=== PATIENT | female | born 1945 | race Caucasian/White ===

== ENCOUNTER 2017-07-31 07:46 | Observation (INO) | payer BC ==
[2017-07-31] MEDS: BUPIVACAINE 0.25% (MPF) 30 ML INJ INJ
[2017-07-31] MEDS: POLYMYXIN/BACITRACIN 1L IRRIG IRR
[2017-07-31] MEDS: CEFAZOLIN 2 GM/50 ML (PMX) 50 ML IVPB (07:00)
[2017-07-31] MEDS: SOD CHLORIDE 0.9% 1,000 ML IV (07:00)
[2017-07-31 10:27] LABS: ADD MAN DIFF? NO
[2017-07-31 10:36] LABS: WHITE BLOOD COUNT 9.2 10^3/ul (4.8-10.8)
[2017-07-31 10:36] LABS: BASOPHIL # 0.1 10^3/ul (0.0-0.1); BASOPHILS % 0.8 % (0.0-2.0); EOSINOPHILS # 0.6 10^3/ul (0.0-0.5); EOSINOPHILS % 6.5 % (0.0-7.0); HEMATOCRIT 39.2 % (37.0-47.0); HEMOGLOBIN 12.8 g/dl (12.0-16.0); LYMPHOCYTES # 2.9 10^3/ul (0.8-2.9); MEAN CORPUSCULAR HGB CONC 32.7 g/dl (32.0-37.0); MEAN CORPUSCULAR VOLUME 79.5 fl (82.0-101.0); MEAN PLATELET VOLUME 10.7 fl (7.4-10.4); MONOCYTE # 0.5 10^3/ul (0.3-0.9); MONOCYTES % 5.4 % (0.0-11.0); NEUTROPHIL # 5.1 10^3/ul (1.6-7.5); PLATELET COUNT 329 10^3/UL (140-415); RED BLOOD COUNT 4.93 10^6/ul (4.20-5.40)
[2017-07-31 10:51] LABS: INR 0.86; PROTIME 11.8 Sec (11.9-14.9); PT RATIO 0.9
[2017-07-31 10:52] LABS: ALANINE AMINOTRANSFERASE 25 IU/L (13-69); ALBUMIN 4.1 g/dl (3.3-4.9); ALBUMIN/GLOBULIN RATIO 1.13; ALKALINE PHOSPHATASE 95 IU/L (42-121); ANION GAP 14 (8-16); ASPARTATE AMINO TRANSFERASE 21 IU/L (15-46); BILIRUBIN,INDIRECT 0.4 mg/dl (0-1.1); BILIRUBIN,TOTAL 0.4 mg/dl (0.2-1.3); CARBON DIOXIDE 28 mmol/L (21-31); CHLORIDE 108 mmol/L (97-110); GLUCOSE 115 mg/dl (70-220); PARTIAL THROMBOPLASTIN TIME 28.8 Sec (25.0-35.0); TOTAL PROTEIN 7.7 g/dl (6.1-8.1)
[2017-07-31 10:55] LABS: BLOOD UREA NITROGEN 14 mg/dl (7-20); CALCIUM 9.6 mg/dl (8.4-10.2); CREATININE 0.72 mg/dl (0.44-1.00); POTASSIUM 4.2 mmol/L (3.5-5.1); SODIUM 146 mmol/L (135-144)
[2017-07-31] MEDS ORDERED: POLYMYXIN/BACITRACIN 1L IRRIG (11:41)
[2017-07-31] MEDS ORDERED: BUPIVACAINE 0.25% (MPF) 30 ML INJ (11:41)
[2017-07-31] MEDS ORDERED: MIDAZOLAM 1 MG/ML 2 ML INJ (11:57)
[2017-07-31] MEDS ORDERED: ONDANSETRON 4 MG INJ (12:50)
[2017-07-31] MEDS ORDERED: PROPOFOL 20 ML (12:54)
[2017-07-31] MEDS ORDERED: NEOSTIGMINE 3 MG/3 ML SYRINGE (12:54)
[2017-07-31] MEDS ORDERED: LIDOCAINE 100 MG SYRINGE (12:54)
[2017-07-31] MEDS ORDERED: ROCURONIUM 50 MG INJ (12:54)
[2017-07-31] MEDS ORDERED: GLYCOPYRROLATE 0.4 MG INJ (12:54)
[2017-07-31] MEDS ORDERED: CEFAZOLIN 1 GM INJ (12:54)
[2017-07-31] MEDS: hydrALAzine 20 MG INJ IV (13:13)
[2017-07-31] MEDS: MEPERIDINE 25 MG INJ IV (13:13)
[2017-07-31] MEDS: ONDANSETRON 4 MG INJ IV (13:14)
[2017-07-31] MEDS ORDERED: LABETALOL HCL 20MG INJ IV (13:30)
[2017-07-31] MEDS ORDERED: HYDROmorphONE (0.2 MG/ML) 10ML SYG IV ×2 (13:30)
[2017-07-31] MEDS ORDERED: METOCLOPRAMIDE 10 MG INJ IV (13:30)
[2017-07-31] MEDS ORDERED: FENTAnyl 50 MCG/ML VIAL IV (13:30)
[2017-07-31] MEDS ORDERED: DIPHENHYDRAMINE 50 MG INJ IV (13:30)
[2017-07-31] MEDS ORDERED: KETOROLAC 30 MG INJ IV (13:30)
[2017-07-31] MEDS: HYDROCODONE/APAP (5/325) TAB PO (14:52)
[2017-07-31] MEDS ORDERED: HYDROCODONE/APAP (5/325) TAB PO (17:30)
[2017-07-31] MEDS: morphine 2 MG INJ IV (18:57)
== END 2017-08-01 16:50 | disposition home or self-care (01) ==
LOC: SDS 07:46 → REC 15:04 → MS2 16:35
DX: K43.0 Incisional hernia with obstruction, without gangrene (principal); E11.9 Type 2 diabetes mellitus without complications; I10 Essential (primary) hypertension; E78.5 Hyperlipidemia, unspecified; E66.9 Obesity, unspecified; Z68.36 Body mass index [BMI] 36.0-36.9, adult
CPT/HCPCS: 49655; 80053; 82962; 85025; 85610; 85730

== ENCOUNTER 2018-11-23 11:54 | Emergency (ER) | payer BC ==
[2018-11-23] MEDS: ONDANSETRON 4 MG INJ IV (12:27)
[2018-11-23] MEDS: SOD CHLORIDE 0.9% 1,000 ML IV (12:27)
[2018-11-23 12:30] LABS: ADD MAN DIFF? NO
[2018-11-23 12:36] LABS: WHITE BLOOD COUNT 9.3 10^3/ul (4.8-10.8)
[2018-11-23 12:36] LABS: BASOPHIL # 0.1 10^3/ul (0.0-0.1); BASOPHILS % 0.8 % (0.0-2.0); EOSINOPHILS # 0.7 10^3/ul (0.0-0.5); EOSINOPHILS % 7.1 % (0.0-7.0); HEMATOCRIT 45.9 % (37.0-47.0); HEMOGLOBIN 14.4 g/dl (12.0-16.0); LYMPHOCYTES # 2.9 10^3/ul (0.8-2.9); LYMPHOCYTES % 31.4 % (15.0-51.0); MEAN CORPUSCULAR HGB CONC 31.4 g/dl (32.0-37.0); MEAN PLATELET VOLUME 10.6 fl (7.4-10.4); MONOCYTE # 0.4 10^3/ul (0.3-0.9); MONOCYTES % 4.5 % (0.0-11.0); NEUTROPHIL # 5.2 10^3/ul (1.6-7.5); PLATELET COUNT 357 10^3/UL (140-415); RED BLOOD COUNT 5.53 10^6/ul (4.20-5.40); RED CELL DISTRIBUTION WIDTH 14.4 % (11.5-14.5)
[2018-11-23 13:00] LABS: ANION GAP 7 (5-13); BLOOD UREA NITROGEN 13 mg/dl (7-20); CALCIUM 10.1 mg/dl (8.4-10.2); CARBON DIOXIDE 24 mmol/L (21-31); CHLORIDE 111 mmol/L (97-110); CREATININE 0.91 mg/dl (0.44-1.00); GLUCOSE 119 mg/dl (70-220); SODIUM 142 mmol/L (135-144)
[2018-11-23 13:11] LABS: TROPONIN-I < 0.012 ng/ml (0.000-0.120)
== END 2018-11-23 14:19 | disposition home or self-care (01) ==
LOC: E/R 11:54
DX: R53.1 Weakness (principal); R11.2 Nausea with vomiting, unspecified
CPT/HCPCS: 36415; 80048; 84484; 85025; 93005; 96374; 99284-25